=== PATIENT | male | born 1960 | race Caucasian/White ===

== ENCOUNTER 2020-09-07 11:21 | Outpatient (CLI) | payer OTHER, SELFPAY ==
[2020-09-07 12:00] LABS: SARS-CoV-2 Ag Negative (Negative)
== END 2020-09-07 11:22 | disposition home or self-care (01) ==
LOC: CHSLAB 11:25
PROVIDERS: PCP Nurse Practitioner Psychiatric/Mental Health; Visit Provider Nurse Practitioner Psychiatric/Mental Health
DX: J06.9 Acute upper respiratory infection, unspecified (principal); Z20.828 Contact with and (suspected) exposure to other viral communicable diseases
CPT/HCPCS: 87426

== ENCOUNTER 2020-10-28 19:07 | Emergency (ER) | payer OTHER, SELFPAY ==
[2020-10-28 19:19] VITALS: BP 139/86; PULSE 90; RESP 20; TEMP 36.9; O2SAT 96
--- NOTE | 2020-10-28 19:26 | PC.NURSE ---
right eye exam with Tetracaine, flouriscene, and rinse and hicks lamp by Heri Sauceda PIN CLE[employer]ER
--- NOTE | 2020-10-28 19:44 | ED.GENADULT ---
HPI - General Adult General Chief complaint: Eye Problems Stated complaint: eye problems Source: patient Mode of arrival: ambulatory Limitations: no limitations History of Present Illness HPI narrative: Pleasant 60 y/o male. PMH includes: HTN, HLD, DM II. Presents to ED today with acute complaints of RT eye irritation and lacrimation S/P accidentally getting a piece of concrete in it while grinding . He reports to have been working on his home basement, was grinding concrete, and he reports to have felt a small piece of concrete come off and fly in my eye . This was despite the noted use of safety goggles. Incident had occurred approximately 2 hours [employer]. He reports worsening watering and irritation since incident had occurred. No significant eye pain, visual changes or loss. This client wears corrective lenses at baseline. He denies additional acute injury upon exam. Related Data Home Medications Medication Instructions Recorded Confirmed lisinopril-hydrochlorothiazide 1 tablet PO DAILY 10/07/19 10/28/20 metformin 500 mg PO DAILY 10/07/19 10/28/20 metoprolol tartrate 25 mg PO DAILY 10/07/19 10/28/20 atorvastatin 20 mg DAILY 10/15/19 10/28/20 Allergies Allergy/AdvReac Type Severity Reaction Status Date / Time No Known Allergies Allergy Verified 10/15/19 11:57 Review of Systems Review of Systems: Narrative: CONSTITUTIONAL: Denies fever, chills, sweats. EYES: Denies visual changes, redness, discharge. Positive FB sensation and irritation RT. ENT: Denies rhinorrhea, congestion, sore throat, otalgia. CARDIOVASCULAR: Denies chest pain, palpitations, edema. RESPIRATORY: Denies dyspnea, wheezing, cough GASTROINTESTINAL: Denies abdominal pain, nausea, vomiting, diarrhea. GENITOURINARY: Denies dysuria, hematuria, abnormal discharge SKIN: Denies rash or itching. MUSCULOSKELETAL: Denies acute back pain, joint pain, or myalgia. NEUROLOGIC: Denies numbness, or focal weakness. PSYCHIATRIC: Denies anxiety or depression. All systems reviewed & are unremarkable except as noted in HPI and below PMFSH Past Medical History Medical History BPH (benign prostatic hyperplasia) Diabetes mellitus Hypertension Sleep apnea TIA (transient ischemic attack) Surgical History Surgical History History of carpal tunnel surgery History of repair of anterior cruciate ligament of right knee History of shoulder surgery Hx of cervical spine surgery Previous back surgery Family History Family History Other Diabetes mellitus Hypertension Social History Social History Smoking status: Never smoker Alcohol intake: current Gender identity (if verbalized by the patient): Male Comments At time of signature, I agree with nursing past medical, surgical, social and family history. There is no relevant family history pertinent to the presenting complaint. Exam Narrative: Exam Narrative: GENERAL: This is a well-nourished, well-developed patient, in no apparent distress. HEAD: normocephalic, atraumatic. EYES: PERRL. Sclera clear/white. Vision is grossly intact, although decreased due to lack of daily corrective lenses. No visual acuity fluctuation from LT/unaffected eye. Topical anesthetic was instilled with good anesthesia using 1gtt of opth anesthetic agent (tetracaine) to RT eye. Fluorescein stain of the RT eye was performed with positive uptake of dye to RT corneal region, 2 small corneal abrasions. In addition, there is a small piece of assumed concrete FB that is embedded within what appears to be the outer aspect of the iris. No ulcer or dendritic lesions. Upper lid was everted and no additional FB or lesions were noted. No Nkechi sign. Normal saline irrigation eye solution was performed and the patient tolera
== END 2020-10-28 19:46 | disposition home or self-care (01) ==
PROVIDERS: Emergency Provider Nurse Practitioner Adult Health; PCP Family Medicine
DX: T15.01XA Foreign body in cornea, right eye, initial encounter (principal); X58.XXXA Exposure to other specified factors, initial encounter; H40.9 Unspecified glaucoma; E11.9 Type 2 diabetes mellitus without complications; I10 Essential (primary) hypertension; G47.30 Sleep apnea, unspecified; Z86.73 Personal history of transient ischemic attack (TIA), and cerebral infarction without residual deficits; E78.5 Hyperlipidemia, unspecified
CPT/HCPCS: 99213; G0463

== ENCOUNTER 2020-10-28 20:57 | Emergency (ER) | payer OTHER, SELFPAY ==
[2020-10-28 20:58] VITALS: BP 155/105; PULSE 78; RESP 16; TEMP 36.6; O2SAT 98
--- NOTE | 2020-10-28 21:16 | ED.GENADULT ---
HPI - General Adult General Chief complaint: Unspecified Stated complaint: concrete in right eye, sent from urgent care Time Seen by Provider: 10/28/20 21:10 Source: patient Mode of arrival: ambulatory Limitations: no limitations History of Present Illness HPI narrative: Patient is a 60-year-old male who presents to emergency department for evaluation of right eye irritation patient had concrete going to the eye today went to urgent care had fluorescein staining was evaluated found to have abrasion given ophthalmology follow-up patient presented back noting that he never got the antibiotic drops did not like taking the hydrocodone the game for pain notes watering and irritation to the right eye denies any other injuries or complaints presents in an uncomfortable state but no distress Related Data Home Medications Medication Instructions Recorded Confirmed lisinopril-hydrochlorothiazide 1 tablet PO DAILY 10/07/19 10/28/20 metformin 500 mg PO DAILY 10/07/19 10/28/20 metoprolol tartrate 25 mg PO DAILY 10/07/19 10/28/20 atorvastatin 20 mg DAILY 10/15/19 10/28/20 Allergies Allergy/AdvReac Type Severity Reaction Status Date / Time No Known Allergies Allergy Verified 10/28/20 21:02 Review of Systems Review of Systems: All systems reviewed & are unremarkable except as noted in HPI and below PMFSH Past Medical History Medical History BPH (benign prostatic hyperplasia) Diabetes mellitus Hypertension Sleep apnea TIA (transient ischemic attack) Surgical History Surgical History History of carpal tunnel surgery History of repair of anterior cruciate ligament of right knee History of shoulder surgery Hx of cervical spine surgery Previous back surgery Family History Family History Other Diabetes mellitus Hypertension Social History Social History Smoking status: Never smoker Alcohol intake: current Gender identity (if verbalized by the patient): Male Exam Narrative: Exam Narrative: GENERAL: Well-appearing, well-nourished, and in no acute distress. HEAD: Normocephalic, atraumatic. EYES: PERRLA and EOMI. patient with conjunctival injection clear discharge right eye no obvious foreign bodies appears to be an abrasion over the iris and pupil ENT: Nares clear, no rhinorrhea or epistaxis. Mucous membranes moist. NECK: Supple. No adenopathy or masses. No carotid bruits or JVD EXTREMITIES: Normal range of motion. No edema. SKIN: Warm, dry, no rash. NEURO: No focal deficits. Alert and oriented x3. PSYCH: Normal mood and affect. Course Course Emergency Course: Patient with erythromycin ophthalmic ointment placed on the eye also had tetracaine placed in the eye for relief will be discharged home with continued plan to follow with ophthalmology tomorrow Vital Signs Vital signs: Vital Signs Temperature 97.9 F 10/28/20 20:58 Pulse Rate 78 10/28/20 20:58 Respiratory Rate 16 10/28/20 20:58 Blood Pressure 155/105 H 10/28/20 20:58 Pulse Oximetry 98 10/28/20 20:58 Temperature 97.9 F 10/28/20 20:58 Pulse Rate 78 10/28/20 20:58 Respiratory Rate 16 10/28/20 20:58 Blood Pressure 155/105 H 10/28/20 20:58 Pulse Oximetry 98 10/28/20 20:58 Medical Decision Making MDM Narrative Medical decision making narrative: Patient in the room uncomfortable no distress will be discharged home for continued plan with follow-up with ophthalmology provided with reasons to return Vital Signs Vital Signs: Vital Signs Temperature 97.9 F 10/28/20 20:58 Pulse Rate 78 10/28/20 20:58 Respiratory Rate 16 10/28/20 20:58 Blood Pressure 155/105 H 10/28/20 20:58 Pulse Oximetry 98 10/28/20 20:58 Temperature 97.9 F 10/28/20 20:58 Pulse Rate 78 10/28/20 20:58 Respi
[2020-10-28] MEDS: IBUPROFEN 600 MG TABLET PO (21:44)
[2020-10-28 21:45] VITALS: BP 148/98; PULSE 70; RESP 18; O2SAT 99
== END 2020-10-28 21:47 | disposition home or self-care (01) ==
PROVIDERS: Emergency Provider Emergency Medicine; Family Provider Family Medicine; PCP Family Medicine
DX: S05.01XA Injury of conjunctiva and corneal abrasion without foreign body, right eye, initial encounter (principal); N40.0 Benign prostatic hyperplasia without lower urinary tract symptoms; E11.9 Type 2 diabetes mellitus without complications; I10 Essential (primary) hypertension; G47.30 Sleep apnea, unspecified; Z86.73 Personal history of transient ischemic attack (TIA), and cerebral infarction without residual deficits; W22.8XXA Striking against or struck by other objects, initial encounter
CPT/HCPCS: 99283; A9270

== ENCOUNTER → 2020-12-24 01:00 | Outpatient (CLI) | payer OTHER, SELFPAY ==
[2020-12-24 20:23] LABS: SARS-CoV-2 RNA PCR Negative
== END ==
PROVIDERS: Family Provider Family Medicine; PCP Family Medicine; Visit Provider Internal Medicine Gastroenterology
DX: Z01.812 Encounter for preprocedural laboratory examination (principal); Z20.822 Contact with and (suspected) exposure to COVID-19
CPT/HCPCS: C9803; U0003; U0005

== ENCOUNTER 2020-12-27 00:50 | Day surgery (SDC) | payer OTHER, SELFPAY ==
[2020-11-13 14:46] VITALS: BMI 38.4
--- NOTE | 2020-12-14 12:43 | PC.NURSE ---
Patient denies any changes in health history and medication. Updated on new arrival times and instructions. No questions at this time.
[2020-12-27 06:51] VITALS: BP 110/69; PULSE 89; RESP 18; TEMP 36.3; O2SAT 95; BMI 38.1
[2020-12-27] MEDS: LACTATED RINGERS 1,000 ML 150 ML IV CONT (07:02)
[2020-12-27 07:04] LABS: Glucose Point of Care 166 (65-105)
--- NOTE | 2020-12-27 07:36 | WPDANESEPPF ---
Anes - Initial Pre Proc Eval Procedure: Operation Date: 12/27/20 08:00 Proposed Procedures p Screening Colonoscopy - Mukul Do DO Date/Time: 12/27/20 07:36 Surgeon: Mukul Do DO Pre Op Diagnosis: Neoplasm Screening Patient Data Age: 60 Gender: M Height: 5 ft 11 in Weight: 124 kg Last Vital Signs Temp 97.4 F L 12/27/20 06:51 Pulse 89 12/27/20 06:51 Resp 18 12/27/20 06:51 BP 110/69 12/27/20 06:51 Pulse Ox 95 12/27/20 06:51 Allergies Allergy/AdvReac Type Severity Reaction Status Date / Time No Known Allergies Allergy Verified 12/27/20 06:49 Home Medications Medication Instructions Recorded Confirmed Type lisinopril-hydrochlorothiazide 2 tablet PO DAILY 10/07/19 11/13/20 History metformin 500 mg PO DAILY 10/07/19 11/13/20 History metoprolol tartrate 25 mg PO DAILY 10/07/19 11/13/20 History atorvastatin 20 mg DAILY 10/15/19 11/13/20 History aspirin 81 mg PO DAILY 11/13/20 11/13/20 History diclofenac potassium 50 mg PO BID 11/13/20 11/13/20 History vit [id number] tablet PO 11/13/20 History [Bioflex] Laboratory Tests 12/27/20 06:57 POC Capillary Glucose 166 mg/dl H mg/dl (65-105) Patient hx anesthesia problems: none Family hx anesthesia problems: none PMFSH Past Medical History Medical History BPH (benign prostatic hyperplasia) Diabetes mellitus Hypertension Sleep apnea TIA (transient ischemic attack) Surgical History Surgical History History of carpal tunnel surgery History of repair of anterior cruciate ligament of right knee History of shoulder surgery Hx of cervical spine surgery Previous back surgery Family History Family History Other Diabetes mellitus Hypertension Social History Social History Smoking status: Never smoker Alcohol intake: unknown Substance use: never Substance use type: does not use Gender identity (if verbalized by the patient): Male Anes - Eval Final PreProcedure Day of Procedure 12/27/20 07:36 Patient weight: obese Heart: regular rate and rhythm Lungs: clear to auscultation Airway: Mallampati scale class III Neurological: alert and oriented Last oral intake: >/= 8 hours ASA classification: III Emergent: no Anesthetic plan: proceed Anesthesia type and monitoring: general GIVS and standard monitoring Informed Consent: The patient's anesthetic plan and its attendant risks and benefits were discussed with the patient/family/POA. Questions were solicited and answers provided to the satisfaction of the patient/family/POA.
--- NOTE | 2020-12-27 07:53 | WPDGICN ---
GI Consult Note Consult date/time: 12/27/20 07:53 HPI: Reason for visit is colonoscopy. This very pleasant gentleman seen in consultation request of the primary physician. Impression: Here is a gentleman with a history of rectal bleeding. This most likely perianal in origin. He does have a family history of colon cancer. Questionable remote history of colon polyps. He is here for colonoscopy. HTN. HLD. Diabetes mellitus. JUSTINE. Obesity. Recommendation: Colonoscopy. History: This very pleasant gentleman is here for colonoscopy. He has questionable history of colon polyps. He does have a family history colon cancer. Reported some rectal bleeding which consisted of bright red blood. He is here for colonoscopy. Physical examination: General: very pleasant patient in no acute distress. HEENT: Head was normocephalic sclerae is clear mouth without masses neck was supple. Heart: Rate rhythm regular without S3 or S4. Lungs: CTA. Abdomen: Soft with no guarding or rigidity. Bowel sounds were active. Neurologic: Cranial nerves 2 through 12 intact. No focal defects. No clonus. Musculoskeletal system: Revealed no joint tenderness or swelling no muscle atrophy. Extremities: Reveal no significant edema. Skin: Warm and dry with normal turgor. Mental status: intact. Patient is alert and oriented. Review of Systems Review of Systems: All systems reviewed & are unremarkable except as noted in HPI and below PMFSH Past Medical History Medical History BPH (benign prostatic hyperplasia) Diabetes mellitus Hypertension Sleep apnea TIA (transient ischemic attack) Surgical History Surgical History History of carpal tunnel surgery History of repair of anterior cruciate ligament of right knee History of shoulder surgery Hx of cervical spine surgery Previous back surgery Family History Family History Other Diabetes mellitus Hypertension Social History Social History Smoking status: Never smoker Alcohol intake: unknown Substance use: never Substance use type: does not use Gender identity (if verbalized by the patient): Male Meds Home Medications and Allergies Home Medications Medication Instructions Recorded Confirmed Type lisinopril-hydrochlorothiazide 2 tablet PO DAILY 10/07/19 11/13/20 History metformin 500 mg PO DAILY 10/07/19 11/13/20 History metoprolol tartrate 25 mg PO DAILY 10/07/19 11/13/20 History atorvastatin 20 mg DAILY 10/15/19 11/13/20 History aspirin 81 mg PO DAILY 11/13/20 11/13/20 History diclofenac potassium 50 mg PO BID 11/13/20 11/13/20 History vit I-[id number]-zyjt-[id number] tablet PO 11/13/20 History [Bioflex] Allergies Allergy/AdvReac Type Severity Reaction Status Date / Time No Known Allergies Allergy Verified 12/27/20 06:49 Vital Signs Vital Signs - 24 hr 12/27/20 06:51 Temperature 36.3 C L Pulse Rate 89 Respiratory Rate 18 Blood Pressure 110/69 Pulse Oximetry 95
[2020-12-27 08:28] VITALS: BP 98/54; PULSE 83; RESP 15; O2SAT 95
[2020-12-27 08:38] VITALS: BP 115/52; PULSE 71; RESP 15; O2SAT 94
[2020-12-27 08:51] VITALS: BP 84/50; PULSE 78; RESP 15; O2SAT 97
[2020-12-27 08:57] VITALS: BP 108/67; PULSE 80
== END 2020-12-27 09:07 | disposition home or self-care (01) ==
PROVIDERS: Family Provider Family Medicine; PCP Family Medicine; Visit Provider Internal Medicine Gastroenterology
PROC: 0DJD8ZZ Inspection of Lower Intestinal Tract, Via Natural or Artificial Opening Endoscopic (ICD-10-PCS; CPT 45378; principal; 2020-12-27 08:00)
DX: Z12.11 Encounter for screening for malignant neoplasm of colon (principal); K62.5 Hemorrhage of anus and rectum; K57.30 Diverticulosis of large intestine without perforation or abscess without bleeding; K64.8 Other hemorrhoids; Z80.0 Family history of malignant neoplasm of digestive organs; I10 Essential (primary) hypertension; E78.5 Hyperlipidemia, unspecified; E11.9 Type 2 diabetes mellitus without complications; G47.33 Obstructive sleep apnea (adult) (pediatric); E66.9 Obesity, unspecified; Z68.38 Body mass index [BMI] 38.0-38.9, adult; N40.0 Benign prostatic hyperplasia without lower urinary tract symptoms; Z86.73 Personal history of transient ischemic attack (TIA), and cerebral infarction without residual deficits; Z79.84 Long term (current) use of oral hypoglycemic drugs; Z79.82 Long term (current) use of aspirin
CPT/HCPCS: 45378; 82948; C9803; J2704; J7120; U0003; U0005

== ENCOUNTER → 2021-06-28 07:08 | Outpatient (CLI) | payer OTHER, SELFPAY ==
--- NOTE | ~2021-06-28 | XR_ITS ---
EXAMINATION: XR chest 2V EXAM DATE: 06/28/2021 07:29 INDICATION: Localized enlarged lymph nodes, right axilla. TECHNIQUE: Frontal and lateral projections of the chest obtained and reviewed. Comparison is made to prior examination from 02/15/2015. FINDINGS: The lungs are clear. There are no pleural effusions. The cardiomediastinal silhouette is within normal limits. There is no pneumothorax suspected. Cervical fusion hardware. IMPRESSION: No acute cardiopulmonary findings. Reviewed, dictated and finalized at location D.
== END ==
PROVIDERS: PCP Family Medicine; Visit Provider Family Medicine
DX: R59.0 Localized enlarged lymph nodes (principal)
CPT/HCPCS: 71046

== ENCOUNTER → 2022-04-24 10:43 | Outpatient (CLI) | payer OTHER, SELFPAY ==
--- NOTE | ~2022-04-24 | MR_ITS ---
EXAMINATION: MR brain/brain stem wo/w con DATE: 04/24/2022 11:22 INDICATION: Chronic tension-type headache. Intractable. TECHNIQUE: Magnetic resonance imaging (MRI) of the brain and brainstem was performed without and with 20 mL MultiHance intravenous contrast. COMPARISON: Head CT 03/30/2015 FINDINGS: There is no intracranial hemorrhage, acute infarction, or abnormal intracranial mass lesion . The ventricles are normal in size. There is mild mucosal thickening in the paranasal sinuses. The o rbits are normal. The mastoid air cells are normal. IMPRESSION: 1. Normal brain. Reviewed, dictated and finalized at location A. IMPRESSION: 1. Normal brain.
[2022-04-24 11:02] LABS: Estimated Glomerular Filt Rate > 60
== END ==
PROVIDERS: PCP Hospitalist; Visit Provider Hospitalist
DX: C91.10 Chronic lymphocytic leukemia of B-cell type not having achieved remission (principal); G44.221 Chronic tension-type headache, intractable
CPT/HCPCS: 70553; A9577

== ENCOUNTER → 2022-06-20 07:45 | Outpatient (CLI) | payer OTHER, SELFPAY ==
--- NOTE | ~2022-06-20 | MR_ITS ---
EXAMINATION: MR cervical spine wo con DATE: 06/20/2022 08:31 INDICATION: Cervical disc disorder with radiculopathy of cervical spine. Neck pain. TECHNIQUE: Magnetic resonance imaging (MRI) of the cervical spine was performed without intravenous c ontrast. Sequences included sagittal T2-weighted FSE, sagittal T2-weighted FS FSE, sagittal T1-weight ed FSE, axial MERGE, and axial T2-weighted FSE. COMPARISON: Cervical spine MRI 04/13/2015 FINDINGS: There is 5 degrees dextrocurvature of cervicothoracic spine. There is kyphosis of lower cer vical spine. There are changes of anterior fusion procedure from C5 to T1 with healed interbody bone graft and anterior plate and screws. Vertebral body heights are normal. There is mildly decreased dis c height at C4-C5. The spinal cord signal intensity is normal. The following disc levels are specific ally discussed: C2-C3: The disc does not extend beyond the endplate margin. There is no uncovertebral joint osteoarth ritis. There is severe right facet joint osteoarthritis. There is ankylosis of left facet joint with severe hypertrophy. There is mild left neural foraminal stenosis. There is no central canal stenosis. C3-C4: The disc is bulging. There is mild right and severe left uncovertebral joint osteoarthritis. T here is moderate and severe left facet joint osteoarthritis. There is mild right and moderate left ne ural foraminal stenosis. There is mild central canal stenosis. C4-C5: The disc does not extend beyond the endplate margin. There is mild bilateral uncovertebral césar nt osteoarthritis. There is moderate and severe left facet joint osteoarthritis. There is mild right and moderate left neural foraminal stenosis. There is no central canal stenosis. C5-C6: There is mild bilateral uncovertebral joint hypertrophy. There is mild right and moderate left facet joint hypertrophy. There is mild bilateral neural foraminal stenosis. There is no central kody l stenosis. C6-C7: There is mild bilateral uncovertebral joint hypertrophy. There is mild left facet joint osteoa rthritis. There is mild bilateral neural foraminal stenosis. There is mild central canal stenosis. C7-T1: There is mild right uncovertebral joint hypertrophy. There is severe bilateral facet joint hyp ertrophy. There is mild bilateral neural foraminal stenosis. There is no central canal stenosis. IMPRESSION: 1. Moderate cervical spondylosis, worsened from 04/13/2015. 2. Anterior fusion procedure from C5 to T1. Reviewed, dictated and finalized at location A.
== END ==
PROVIDERS: Visit Provider Nurse Practitioner Gerontology
DX: M50.10 Cervical disc disorder with radiculopathy, unspecified cervical region (principal); M47.892 Other spondylosis, cervical region; Z98.1 Arthrodesis status
CPT/HCPCS: 72141

== ENCOUNTER 2024-02-25 08:02 | Emergency (ER) | payer BC, SELFPAY ==
--- NOTE | 2024-02-25 08:09 | ED.EAR ---
HPI - Ear Problem General Chief complaint: Ear Stated complaint: Right Ear Irritation Time Seen by Provider: 02/25/24 08:09 Source: patient Mode of arrival: ambulatory Limitations: no limitations History of Present Illness HPI Narrative: Patient is a 63-year-old male who presents with soy bunch and right ear that happened the night before last. Patient was cleaning out combine and had left over soy beans fall onto his head. Patient got 1 out but thinks there is still 1 in there. Patient has tried flushing ear with no relief. MD Complaint: ear pain Related Data Home Medications Medication Instructions Recorded Confirmed metoprolol tartrate 25 mg tablet 25 mg PO DAILY 10/07/19 02/25/24 atorvastatin 20 mg tablet 20 mg DAILY 10/15/19 02/25/24 aspirin 81 mg tablet 81 mg PO DAILY 11/13/20 02/25/24 empagliflozin 25 mg tablet 25 mg PO DAILY 02/25/24 02/25/24 (Jardiance) lisinopril 5 mg tablet mg 02/25/24 lisinopril 5 mg tablet mg 02/25/24 pregabalin 100 mg capsule 200 mg PO DAILY 02/25/24 02/25/24 Allergies Allergy/AdvReac Type Severity Reaction Status Date / Time No Known Allergies Allergy Verified 02/25/24 08:15 Review of Systems Review of Systems: All systems reviewed & are unremarkable except as noted in HPI and below Constitutional: Constitutional: Denies body ache(s), Denies chills, Denies fever(s), Denies headache(s) and Denies malaise Eyes: Eyes: Denies blurry vision, Denies eye discharge and Denies irritation ENT: Reports otalgia, Denies headache(s), Reports hearing loss, Denies nasal congestion, Denies nasal discharge and Denies sore throat Cardiovascular: Cardiovascular: Denies chest pain, Denies edema, Denies palpitations and Denies dyspnea on exertion Respiratory: Respiratory: Denies cough and Denies dyspnea on exertion Gastrointestinal: Gastrointestinal: Denies abdominal pain, Denies diarrhea, Denies nausea and Denies vomiting Musculoskeletal: Musculoskeletal: Denies back pain, Denies arthralgias and Denies muscle weakness Integumentary/Breasts: Skin/Breast: Denies pruritus and Denies rash Neurologic: Denies headache(s) Psychiatric: Psychiatric: Reports no additional psychiatric complaints Endocrine: Endocrine: Denies palpitations PMFSH Past Medical History Medical History BPH (benign prostatic hyperplasia) Diabetes mellitus Hypertension Sleep apnea TIA (transient ischemic attack) Surgical History Surgical History History of carpal tunnel surgery History of repair of anterior cruciate ligament of right knee History of shoulder surgery Hx of cervical spine surgery Previous back surgery Family History Family History Other Diabetes mellitus Hypertension Social History Social History Smoking status: Never smoker Alcohol intake: unknown Substance use: never Substance use type: does not use Gender identity (if verbalized by the patient): Male Comments At time of signature, agree with nursing past medical, surgical, social and family history. There is no relevant family history pertinent to the presenting complaint? Exam Const: General: cooperative, healthy appearing, no acute distress and well nourished Nutritional Appearance: well nourished Orientation/consciousness: patient oriented x3 Limitations: no limitations HENMT: Head: normal to inspection, normocephalic and atraumatic Ears: hearing grossly normal bilaterally, TM's normal bilaterally, no periauricular adenopathy and Abnormal EAC present erythema on the right, EAC tenderness on the right and foreign body on the right and localized Face/Nose/Sinus: Normal external nose present, Normal nares present, Normal nasal mucous membranes and turbinates present, No nasal discharge present, normal faci
[2024-02-25 08:11] VITALS: BP 132/85; PULSE 73; RESP 18; TEMP 36.2; O2SAT 100
--- NOTE | 2024-02-25 08:32 | PC.NURSE ---
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 PT TOLERATED WITH MILD DISCOMFORT.
== END 2024-02-25 08:35 | disposition home or self-care (01) ==
PROVIDERS: Emergency Provider Nurse Practitioner Family; PCP Hospitalist
DX: H60.501 Unspecified acute noninfective otitis externa, right ear (principal); T16.1XXA Foreign body in right ear, initial encounter; W44.F3XA Food entering into or through a natural orifice, initial encounter; N40.0 Benign prostatic hyperplasia without lower urinary tract symptoms; E11.9 Type 2 diabetes mellitus without complications; Z79.84 Long term (current) use of oral hypoglycemic drugs; I10 Essential (primary) hypertension; Z86.73 Personal history of transient ischemic attack (TIA), and cerebral infarction without residual deficits; Z79.82 Long term (current) use of aspirin
CPT/HCPCS: 99213; G0463